=== PATIENT | male | born 1965 | race Caucasian/White ===

== ENCOUNTER 2017-12-02 06:40 | Emergency (ER) | payer SELFPAY ==
[~2017-12-02] VITALS: Ht 188 cm; Wt 90.0 kg
[~2017-12-02 06:40] MED LIST: HYDR10TA16 PO
[2017-12-02 06:42] VITALS: BP 155/67; PULSE 76; RESP 16; TEMP 98.9; O2SAT 98
[2017-12-02] MEDS ORDERED: CLINDAMYCIN 150 MG CAP PO ONE (07:30)
[2017-12-02] MEDS ORDERED: METH40TA PO (07:38)
[2017-12-02] MEDS ORDERED: CLIN150C14 PO (07:50)
[2017-12-02] MEDS ORDERED: CHLO.12%30 SWISH-SPIT (07:50)
--- NOTE | 2017-12-02 07:51 | PD ---
HPI Chief Complaint: Oral / Dental Pain or Problem Time Seen by Provider: 07:17 Travel History International Travel<30 days: No Contact w/Intl Traveler<30days: No Traveled to known affect area: No History of Present Illness HPI Patient is a 52-year-old male presenting to the emergency department for evaluation of dental caries and possible abscess. He states it started yesterday with pain and he noticed some facial swelling this morning. He states that he has a history of chronic sinusitis as well. He denies any fever , chills, nausea, vomiting, headache. He states he has bad teeth and has not seen a dentist. No alleviating factors, pain is exacerbated with chewing. No other complaints today. PFSH Past Medical History Medical History: Denies Significant Hx Diminished Hearing: No Tetanus Vaccination: < 5 Years Influenza Vaccination: No Social History Alcohol Use: No Tobacco Use: Yes Substance Use: No Allergies-Medications (Allergen,Severity, Reaction): Coded Allergies: No Known Allergies (Verified Adverse Reaction, Unknown, 12/02/17) Reported Meds & Prescriptions Reported Meds & Active Scripts Active Chlorhexidine Gluconate (Mouth) Liq (Chlorhexidine Gluconate) 0.12% Soln 15 Ml SWISH-SPIT BID 10 Days Clindamycin (Clindamycin HCl) 150 Mg Cap 300 Mg PO Q8HR 10 Days Reported Methadone (Methadone HCl) 40 Mg Tab 140 Mg PO DAILY Review of Systems Except as stated in HPI: all other systems reviewed are Neg HENT: Positive: Dental Difficulties Skin: Positive Other (facial edema, right) Physical Exam Narrative GENERAL: Well-developed, well-nourished, alert male. Resting comfortably in no acute distress. SKIN: Warm and dry. Rash or obvious lesions, no erythema noted to cheeks or face. Mild edema noted to the right cheek. MOUTH: Mucous membranes moist, no lesions, tongue and gums appear normal. Significant dental caries throughout, teeth on the right upper are broken at the gumline. No obvious abscess noted. HEAD: Normocephalic. EYES: No scleral icterus. No injection or drainage. NECK: Supple, trachea midline. No JVD or lymphadenopathy. CARDIOVASCULAR: Regular rate and rhythm without murmurs, gallops, or rubs. RESPIRATORY: Breath sounds equal bilaterally. No accessory muscle use. GASTROINTESTINAL: Abdomen soft, non-tender, nondistended. MUSCULOSKELETAL: No cyanosis, or edema. Data Data Last Documented VS Vital Signs Date Time Temp Pulse Resp B/P (MAP) Pulse Ox O2 Delivery O2 Flow Rate FiO2 12/02/17 06:42 98.9 76 16 155/67 (96) 98 Room Air Orders Orders Clindamycin (Cleocin) (12/02/17 07:30) Ed Discharge Order (12/02/17 07:51) MDM Medical Decision Making Medical Screen Exam Complete: Yes Emergency Medical Condition: Yes Interpretation(s) Vital Signs Date Time Temp Pulse Resp B/P (MAP) Pulse Ox O2 Delivery O2 Flow Rate FiO2 12/02/17 06:42 98.9 76 16 155/67 (96) 98 Room Air Differential Diagnosis Abscess versus caries versus cellulitis versus other Narrative Course Patient presented for evaluation of dental pain and facial swelling. Patient's vital signs are stable, is afebrile, he is well-appearing. There is mild edema to the right cheek, no erythema or induration. Patient has significant dental caries throughout, multiple teeth that are broken at the gumline. Patient will be ready with a prescription for clindamycin, first dose was given now. He was advised to follow-up with a dentist in 3-4 days. He was encouraged to avoid smoking. He was encouraged to return to emergency department any new or worsening symptoms. Patient verbalized understanding of instructions. Patient stable for discharge. Diagnosis Primary Impression: Dental caries Referrals: Dentist 3 days Patient Instructions: Dental Caries (DC), General Instructions Additional Instructions: Follow up with a dentist in 3-4 days Complete full course of antibiotics as prescribed Return to the Emergency Department for any new or worsening symptoms. Med/Other Pt SpecificInfo: Prescription(s) given Scripts Chlorhexidine Gluconate (Mouth) Liq (Chlorhexidine Gluconate (Mouth) Liq) 0.12% Soln 15 ML SWISH-SPIT BID for 10 Days, #300 ML 0 Refills Prov: Lilli Clemens 12/02/17 Clindamycin (Clindamycin) 150 Mg Cap 300 MG PO Q8HR for Infection for 10 Days, CAP 0 Refills Prov: Lilli Clemens 12/02/17 Disposition: 01 DISCHARGE HOME Condition: Stable Lilli Clemens Dec 02, 2017 07:50
== END 2017-12-02 07:53 | disposition home or self-care (01) ==
LOC: NEPD 06:40
DX: K02.9 Dental caries, unspecified (principal); J32.9 Chronic sinusitis, unspecified; Z72.0 Tobacco use
CPT/HCPCS: 99284

== ENCOUNTER 2018-02-11 21:08 | Emergency (ER) | payer SELFPAY ==
[~2018-02-11] VITALS: Ht 188 cm; Wt 84.0 kg
[~2018-02-11 21:08] MED LIST changes: +CHLO.12%30 SWISH-SPIT; +CLIN150C14 PO; -HYDR10TA16 PO; +METH40TA PO
[2018-02-11 21:49] VITALS: BP 178/86; PULSE 71; RESP 18; TEMP 98.1; O2SAT 98
== END 2018-02-12 01:33 | disposition left against medical advice (07) ==
LOC: NED 21:08
DX: J00 Acute nasopharyngitis [common cold] (principal)
CPT/HCPCS: 99281